=== PATIENT | male | born 1990 | race Two or more races ===

== ENCOUNTER 2025-09-30 21:17 | Emergency (ER) | payer OTHER ==
[~2025-09-30] VITALS: Ht 177.8 cm; Wt 138.3 kg
[2025-09-30 21:56] LABS: APPEARANCE,URINE CLEAR (CLEAR); BLOOD, URINE NEGATIVE Ery/uL (NEGATIVE); LEUKOCYTE ESTERASE ,URINE NEGATIVE (NEGATIVE); NITRITE, URINE NEGATIVE (NEGATIVE); UGLUCOSE NEGATIVE (NEGATIVE)
[2025-09-30 22:01] LABS: ADD URINE CULTURE NO; SQUAMOUS EPITHELIAL CELL,UR None Seen /HPF (None Seen)
[2025-09-30 22:14] LABS: PLATELET COUNT (AUTO) 252 K/uL (150-450); RED BLOOD CELL COUNT(AUTO) 4.98 MIL/uL (4.5-6.0); RED CELL DISTRIBUTION WIDTH 13.0 % (11.5-15.0); WHITE BLOOD COUNT (AUTO) 10.1 K/uL (4.3-11.0)
[2025-09-30 22:24] LABS: CALCIUM, SERUM 8.6 mg/dL (8.5-10.1); CREATININE 0.7 mg/dL (0.6-1.3); SODIUM SERUM 143.0 mmol/L (136-145); UREA NITROGEN, BLOOD 9.0 mg/dL (7-18)
[2025-09-30 22:28] LABS: INR 0.99 (0.91-1.10)
[2025-09-30 22:30] LABS: ASPARTATE AMINOTRANSFERASE 29.0 U/L (15-37); TOTAL PROTEIN, SERUM 7.6 g/dL (6.4-8.2)
[2025-09-30] MEDS ORDERED: MORPHINE SULFATE INJ 4 MG/ML DISP.SYRIN ONE (22:32)
[2025-09-30] MEDS ORDERED: ONDANSETRON HCL/PF 4 MG/2 ML VIAL ONE (22:32)
[2025-09-30] MEDS ORDERED: PANTOPRAZOLE 40 MG VIAL ONE (22:32)
[2025-09-30] MEDS: MORPHINE SULFATE INJ 2 MG/ML DISP.SYRIN IV ONE (22:36)
[2025-09-30] MEDS: IV NS 0.9% 1,000 ML BAG IV ONE (22:36)
[2025-09-30] MEDS: ONDANSETRON HCL/PF 4 MG/2 ML VIAL IVP ONE (22:37)
[2025-09-30] MEDS ORDERED: IOHEXOL-300 100 ML VIAL IV ONE (22:44)
[2025-09-30] MEDS: PANTOPRAZOLE 40 MG VIAL IV ONE (23:02)
[2025-10-01] MEDS ORDERED: MAG HYDROX/AL HYDROX/SIMETH 30 ML UDC ONE (00:54)
[2025-10-01] MEDS ORDERED: LIDOCAINE VISCOUS 2% UD 15 ML UDC ONE (00:54)
[2025-10-01] MEDS ORDERED: HYDROCODONE/APAP 5/325MG TABLET ONE (00:54)
[2025-10-01] MEDS: LIDOCAINE VISCOUS 2% UD 15 ML UDC MM ONE (01:01)
[2025-10-01] MEDS: MAG HYDROX/AL HYDROX/SIMETH 30 ML UDC PO ONE (01:01)
[2025-10-01] MEDS: HYDROCODONE/APAP 5/325MG TABLET PO ONE (01:03)
[2025-10-01] MEDS ORDERED: DOCU-141 PO (02:39)
[2025-10-01] MEDS ORDERED: PANT40TA2 PO (02:41)
[2025-10-01 03:04] VITALS: BP 132/89; TEMP 98; O2SAT 95
== END 2025-10-01 03:04 | disposition home or self-care (01) ==
LOC: ER 21:24
DX: K62.5 Hemorrhage of anus and rectum (principal); R10.10 Upper abdominal pain, unspecified; Z90.49 Acquired absence of other specified parts of digestive tract
CPT/HCPCS: 99285; 74177; 96374; 96375; 96361; 85025; 80048; 83690; 80076; 81001; 36415; 85730; J2270; J2405; J7030; J2470; Q9967